=== PATIENT | male | born 1990 | race Caucasian/White ===

== ENCOUNTER 2017-01-31 08:56 | Emergency (ER) | payer BC, OTHER ==
[2017-01-31] MEDS ORDERED: Lidocaine 1% 10 ML MDV INJECT ONE (09:10)
[2017-01-31] MEDS ORDERED: Lidocaine 1% 50 ML MDV INJECT ONE (09:15)
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
[2017-01-31 10:03] VITALS: BP 131/86
== END 2017-01-31 10:00 | disposition home or self-care (01) ==
LOC: JD.ED 08:56
DX: S81.812A Laceration without foreign body, left lower leg, initial encounter (principal); V89.2XXA Person injured in unspecified motor-vehicle accident, traffic, initial encounter; Y92.410 Unspecified street and highway as the place of occurrence of the external cause; F17.200 Nicotine dependence, unspecified, uncomplicated
CPT/HCPCS: 12032; 99283-25

== ENCOUNTER 2019-10-27 11:27 | Emergency (ER) | payer BC ==
--- NOTE | 2019-10-27 12:06 | EDM.PDOC ---
ED HPI GENERAL MEDICAL PROBLEM - General Chief Complaint: Drug or Alcohol Abuse Stated Complaint: DETOX Time Seen by Provider: 10/27/19 11:43 Source of Information: Reports: Patient, RN Notes Reviewed History Limitations: Reports: No Limitations - History of Present Illness INITIAL COMMENTS - FREE TEXT/NARRATIVE: Patient is a 29-year-old male who presents to the ED for alcohol issues. The patient states that he last took a shot of rum this morning at around 7 AM. He notes that he drank heavily over the weekend, lots of liquor. He states that he was wanting to go to the liquor stores to get some more, however they are not open, so his father persuaded him to come to the ER for help. Patient notes that he does have to go to work tomorrow, and does want to go to work tomorrow, but does not think that he will drink his day away to be able to go to work tomorrow. Patient does have prior anxiety issues, and he is on Lexapro 10 mg daily. Patient notes he is not an everyday drinker, and that he likes to drink on a binge basis. Patient states he was shaking this morning, and sweating, and feels chilled now. He states he has not really eaten much in the past couple days as well, as he has been "drinking his meals". He denies any fevers or chills, chest pain, shortness of breath, nausea/vomiting/diarrhea. - Related Data Allergies Allergy/AdvReac Type Severity Reaction Status Date / Time No Known Allergies Allergy Verified 01/31/17 09:04 Home Meds: Home Meds Escitalopram [Lexapro] 10 mg PO DAILY 10/27/19 [History] Ketoconazole [Nizoral 2% Crm] 1 applic TOP ASDIRECTED 10/27/19 [History] Past Medical History HEENT History: Reports: Other (See Below) Other HEENT History: wisdom teeth removed. Musculoskeletal History: Reports: Fracture Psychiatric History: Reports: Anxiety - Infectious Disease History Infectious Disease History: Reports: Hepatitis C - Past Surgical History Other Musculoskeletal Surgeries/Procedures:: plates/screws to L) wrist. Social & Family History - Tobacco Use Smoking Status *Q: Current Every Day Smoker Years of Tobacco use: 1 Packs/Tins Daily: 0.5 - Caffeine Use Caffeine Use: Reports: Coffee, Tea - Recreational Drug Use Recreational Drug Use: No - Living Situation & Occupation Living situation: Reports: Single ED ROS GENERAL - Review of Systems Review Of Systems: See Below Constitutional: Denies: Fever, Chills Respiratory: Denies: Shortness of Breath Cardiovascular: Denies: Chest Pain GI/Abdominal: Denies: Abdominal Pain, Diarrhea, Nausea, Vomiting Neurological: Denies: Confusion Psychiatric: Reports: Anxiety ED EXAM, GENERAL - Physical Exam Exam: See Below Exam Limited By: No Limitations General Appearance: Alert, WD/WN, No Apparent Distress, Anxious (pt is walking around the room, twiddling his fingers, appears mildly agitated.) Eye Exam: Bilateral Eye: EOMI, Normal Inspection, PERRL Nose: Normal Inspection Throat/Mouth: Normal Inspection, Normal Lips, Normal Teeth, Normal Gums, Normal Oropharynx, Normal Voice, No Airway Compromise Head: Atraumatic, Normocephalic Neck: Normal Inspection Respiratory/Chest: No Respiratory Distress, Lungs Clear, Normal Breath Sounds, No Accessory Muscle Use, Chest Non-Tender Cardiovascular: Normal Peripheral Pulses, Regular Rate, Rhythm, No Murmur Peripheral Pulses: 3+: Radial (L), Radial (R) GI/Abdominal: Normal Bowel Sounds, Soft, Non-Tender, No Distention, No Mass Extremities: Normal Inspection, Normal Capillary Refill Neurological: Alert, Oriented, No Motor/Sensory Deficits Psychiatric: Normal Affect, Normal Mood, Anxious (pt is pacing room, and appears to be somewhat agitated, he states that this visit " is stupid, and he doesn't really know why he is here") Skin Exam: Warm, Dry, Intact, Normal Color, No Rash Course - Vital Signs Last Recorded V/S: Last Vital Signs Temp 98.3 F 10/27/19 11:40 Pulse 110 H 10/27/19 11:40 Resp 20 10/27/19 11:40 BP 149/111 H 10/27/19 11:40 Pulse Ox 99 10/27/19 11:40 - Orders/Labs/Meds Meds: Medications Discontinued Medications Generic Name Dose Route Start Last Admin Trade Name Freq PRN Reason Stop Dose Admin Lorazepam 0.5 mg 10/27/19 12:30 10/27/19 12:36 Ativan PO 10/27/19 12:31 0.5 mg ONETIME ONE Administration - Re-Assessments/Exams Free Text/Narrative Re-Assessment/Exam: 10/27/19 12:36 Patient presents to the ED for alcohol issues. He is agitated walking around the room, after talking with him, I will provide him with 0.5 mg of Ativan to try to calm his nerves in the ER. Will likely discharge him home with general recommendations, as I do not believe he is a candidate for withdrawal symptoms at this time. He will be advised to stop drinking alcohol, and seek help as such. Departure - Departure Time of Disposition: 12:55 Disposition: Home, Self-Care 01 Condition: Fair Clinical Impression: Alcohol abuse - Discharge Information *PRESCRIPTION DRUG MONITORING PROGRAM REVIEWED*: No *COPY OF PRESCRIPTION DRUG MONITORING REPORT IN PATIENT MARGOTH: No Instructions: Alcohol Abuse and Nutrition, Finding Treatment for Addiction Referrals: Brea Delgadillo NP [Primary Care Provider] - Additional Instructions: You were evaluated in the ER today regarding your alcohol abuse. With your history of binge alcoholism, it is not likely that you will suffer from alcohol withdrawal syndrome. You were anxious in this ER, so you did receive 0.5 mg of Ativan for anxiety management. You did seem to receive some good benefit from this. Recommend that you refrain from alcohol use, and that you present to [facility] services, please call their office on Monday, , they do provide help for people with alcoholism. Try to increase your oral fluid intake of liquids other than alcohol, and try to eat a few good meals today. Please return to the ER at any time if your symptoms change or worsen.
[2019-10-27] MEDS ORDERED: LORazepam 0.5 MG Tab PO ONE (12:30)
[2019-10-27 13:03] VITALS: BP 119/76; PULSE 80
== END 2019-10-27 13:05 | disposition home or self-care (01) ==
LOC: JD.ED 11:27
DX: F10.10 Alcohol abuse, uncomplicated (principal); F41.9 Anxiety disorder, unspecified; F17.210 Nicotine dependence, cigarettes, uncomplicated; Z79.899 Other long term (current) drug therapy
CPT/HCPCS: 99282; A9270; 99283

== ENCOUNTER 2019-11-21 21:17 | Emergency (ER) | payer BC ==
[2019-11-21] MEDS ORDERED: Lidocaine 1% 10 ML MDV INJECT ONE (21:36)
[2019-11-21 21:37] VITALS: BP 133/97; PULSE 89
--- NOTE | 2019-11-21 21:42 | EDM.PDOC ---
ED HPI GENERAL MEDICAL PROBLEM - General Chief Complaint: ENT Problem Stated Complaint: INJURED RIGHT EAR Time Seen by Provider: 11/21/19 21:29 Source of Information: Reports: Patient, RN Notes Reviewed History Limitations: Reports: No Limitations - History of Present Illness INITIAL COMMENTS - FREE TEXT/NARRATIVE: Patient is a 29-year-old male who presents to the ED for the evaluation of a right ear injury. Patient notes he has had quite a bit to drink tonight, and about 2 hours ago, he was playing with his pet rat, and somehow got his head stuck in the rat cage, and ended up cutting his right ear on the cage, he states that the rat did not bite him. He does note that he is up-to-date on his tetanus immunization. This laceration involves the superior lobe area proximal to the anti-tragus on the right side. This is a roughly 1 cm laceration. There is a mild amount of bleeding noted to the area. He denies any hearing loss, or pain elsewhere. Right Ear Pain Score (Numeric/FACES): 4 - Related Data Allergies Allergy/AdvReac Type Severity Reaction Status Date / Time No Known Allergies Allergy Verified 01/31/17 09:04 Home Meds: Home Meds Escitalopram [Lexapro] 10 mg PO DAILY 10/27/19 [History] Melatonin 2 mg PO BEDTIME 11/21/19 [History] Zolpidem Tartrate [Ambien Cr] 12.5 mg PO BEDTIME 11/21/19 [History] Past Medical History HEENT History: Reports: Other (See Below) Other HEENT History: wisdom teeth removed. Musculoskeletal History: Reports: Fracture Psychiatric History: Reports: Anxiety - Infectious Disease History Infectious Disease History: Reports: Hepatitis C - Past Surgical History Other Musculoskeletal Surgeries/Procedures:: plates/screws to L) wrist. Social & Family History - Tobacco Use Smoking Status *Q: Current Every Day Smoker Years of Tobacco use: 16 Packs/Tins Daily: 1 - Caffeine Use Caffeine Use: Reports: Coffee, Tea - Recreational Drug Use Recreational Drug Use: No - Living Situation & Occupation Living situation: Reports: Single ED ROS ENT - Review of Systems Review Of Systems: Comprehensive ROS is negative, except as noted in HPI. Skin: Reports: Wound (1 cm laceration to the right ear auricle, see HPI) ED EXAM, ENT - Physical Exam Exam: See Below Exam Limited By: No Limitations (Patient is acutely intoxicated from alcohol, but answers questions appropriately.) General Appearance: Alert, WD/WN, No Apparent Distress Eye Exam: Bilateral Eye: EOMI, Normal Inspection, PERRL Ears: Normal Canal, Hearing Grossly Normal, Normal TMs, Other (Laceration of right auricle, superior to the lobe, and proximal to the antitragus. This is roughly 1 cm and linear in fashion.) Nose: Normal Inspection, Normal Mucousa, No Blood Mouth/Throat: Normal Inspection, Normal Gums, Normal Lips, Normal Oropharynx, Normal Teeth Respiratory/Chest: No Respiratory Distress, Lungs Clear, Normal Breath Sounds, No Accessory Muscle Use, Chest Non-Tender Cardiovascular: Normal Peripheral Pulses, Regular Rate, Rhythm, No Murmur Neurological: Alert, Oriented, Normal Cognition, Normal Gait, No Motor/Sensory Deficits Psychiatric: Normal Affect, Normal Mood Skin: Warm, Dry, Normal Color, No Rash, Wound/Incision (Laceration of right auricle, superior to the lobe, and proximal to the antitragus. This is roughly 1 cm and linear in fashion.) ED ENT PROCEDURES - Laceration/Wound Repair Right Ear Lac/wound length in cm: 1 Appearance: Superficial, Subcutaneous, Linear, Clean Distal NVT: Neuro & Vascular Intact, No Tendon Injury Anesthetic Type: Local Local Anesthesia - Lidocaine (Xylocaine): 1% Plain Local Anesthetic Volume: 2cc Skin Prep: Chlorhexidine (Hibiciens), Saline Exploration/Debridement/Repair: Wound Explored, In a Bloodless Field, Explored to Base, No Foreign Material Found Suture Size: 5-0 # of Sutures: 5 Suture Type: Prolene, Interrupted, Simple Sterile Dressing Applied: Nurse Tetanus Status Addressed: Yes Complications: None Course - Vital Signs Last Recorded V/S: Last Vital Signs Temp 98.6 F 11/21/19 21:34 Pulse 89 11/21/19 21:34 Resp 20 11/21/19 21:34 BP 133/97 H 11/21/19 21:34 Pulse Ox 98 11/21/19 21:34 - Orders/Labs/Meds Meds: Medications Discontinued Medications Generic Name Dose Route Start Last Admin Trade Name Freq PRN Reason Stop Dose Admin Lidocaine HCl 10 ml 11/21/19 21:36 Xylocaine 1% INJECT 11/21/19 21:37 ONETIME ONE Departure - Departure Time of Disposition: 21:42 Disposition: Home, Self-Care 01 Condition: Fair Clinical Impression: Laceration of right external ear Qualifiers: Encounter type: initial encounter Qualified Code(s): S01.311A - Laceration without foreign body of right ear, initial encounter - Discharge Information *PRESCRIPTION DRUG MONITORING PROGRAM REVIEWED*: No *COPY OF PRESCRIPTION DRUG MONITORING REPORT IN PATIENT MARGOTH: No Instructions: Sutured Wound Care, [id number] Referrals: Shreya Trevizo NP [Primary Care Provider] - Forms: ED Department Discharge Additional Instructions: You have been evaluated in the ED for your laceration. Sutures will need to stay in for 5-7 days. (11/26-11/28) You may return to the ED or clinic for removal. Please keep this area clean and dry, you may cleanse with regular soap and water. No vigorous scrubbing. Watch out for signs of infection like increased redness, swelling, pain at the laceration site, or if you should develop any fevers or chills. Please return to ED if your symptoms change or worsen. Sepsis Event Note - Focused Exam Vital Signs: Vital Signs Temp Pulse Resp BP Pulse Ox 11/21/19 21:34 98.6 F 89 20 133/97 H 98 Date Exam was Performed: 11/21/19 Time Exam was Performed: 22:11
== END 2019-11-21 22:23 | disposition home or self-care (01) ==
LOC: JD.ED 21:17
DX: S01.311A Laceration without foreign body of right ear, initial encounter (principal); F17.210 Nicotine dependence, cigarettes, uncomplicated; W22.8XXA Striking against or struck by other objects, initial encounter
CPT/HCPCS: 12011; 99282; J2001

== ENCOUNTER 2020-02-28 11:49 | Emergency (ER) | payer BC ==
[2020-02-28] MEDS ORDERED: Ondansetron 4 MG Tab.DIS PO ONE (11:55)
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
[2020-02-28 12:08] VITALS: BP 145/103; PULSE 104
== END 2020-02-28 12:26 ==
LOC: JD.ED 11:49
DX: F10.129 Alcohol abuse with intoxication, unspecified (principal); F41.9 Anxiety disorder, unspecified; Z79.899 Other long term (current) drug therapy
CPT/HCPCS: 99284; A9270; 99283